=== PATIENT | male | born 2000 | race American Indian/Alaskan Native ===

== ENCOUNTER 2020-01-14 15:33 | Emergency (ER) | payer SELFPAY ==
[2020-01-14] MEDS ORDERED: MORPHINE 4 MG/1 ML INJ IV ONE ×2 (15:39→16:05)
[2020-01-14] MEDS ORDERED: KETOROLAC 30 MG/1 ML INJ IV ONE (15:39)
[2020-01-14] MEDS ORDERED: KETOROLAC 30 MG/1 ML INJ ONE (15:39)
[2020-01-14] MEDS ORDERED: ONDANSETRON 4 MG/2 ML INJ IV ONE (15:39)
[2020-01-14] MEDS ORDERED: SODIUM CHLORIDE 0.9% 1000 ML 1,000 ML IV ONE (15:39)
[2020-01-14] MEDS ORDERED: MORPHINE 4 MG/1 ML INJ ONE (15:40)
[2020-01-14] MEDS ORDERED: ceFAZolin/NS 1 GM/50 ML 1 GM/50 ML BAG IV ONE (15:42)
[2020-01-14 15:54] LABS: Hematocrit 44.1 % (35.5-45.6); Hemoglobin 14.8 gm/dl (11.8-15.2); Mean Corpuscular HGB Conc 34 % (32-34); Mean Corpuscular Volume 91 fl (84-94); Platelet Count 257 K/mm3 (140-440); Red Blood Count 4.85 M/mm3 (3.65-5.03); Red Cell Distribution Width 14.2 % (13.2-15.2)
[2020-01-14 16:03] LABS: BUN/Creatinine Ratio 12; Blood Urea Nitrogen 12 mg/dL (9-20); Calcium 9.1 mg/dL (8.4-10.2); Hemolysis Index 14
[2020-01-14] MEDS ORDERED: SODIUM CHLORIDE IRRI 500 ML 500 ML IR ONE (16:19)
[2020-01-14] MEDS ORDERED: HYDROmorphone 1 MG/1 ML INJ IV ONE ×2 (16:47)
[2020-01-14 17:05] LABS: Total Cells Counted 100
[2020-01-14 17:07] LABS: Band Neutrophils # (Manual) 0.2 K/mm3; Basophils % (Manual) 0 % (0.0-1.8)
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
[2020-01-14 17:22] LABS: Ovalocytes Rare; Platelet Estimate Consistent w Auto
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
[2020-01-14 22:16] VITALS: BP 129/93
== END 2020-01-14 19:58 | disposition home or self-care (01) ==
LOC: ED 15:33
DX: S82.832A Other fracture of upper and lower end of left fibula, initial encounter for closed fracture (principal); F17.200 Nicotine dependence, unspecified, uncomplicated; F12.90 Cannabis use, unspecified, uncomplicated; Z79.899 Other long term (current) drug therapy; W34.00XA Accidental discharge from unspecified firearms or gun, initial encounter; Y93.89 Activity, other specified; Y92.89 Other specified places as the place of occurrence of the external cause; Y99.8 Other external cause status
CPT/HCPCS: 29515; 36415; 73590; 80048; 85007; 85025; 96374; 96375; 96376; 99284; J0690; J1170; J1885; J2270; J2405; J7030